=== PATIENT | female | born 1960 | race Asian ===

== ENCOUNTER 2016-07-13 13:44 | Emergency (ER) | payer OTHER ==
[~2016-07-13] VITALS: Ht 157.5 cm; Wt 74.4 kg
[~2016-07-13 13:44] MED LIST: COLACE100 MG ORAL; IBUPROFEN600 MG ORAL; LORAZEPAM0.5 MG ORAL; NORCO 5-325 TA1 EACH ORAL
[2016-07-13] MEDS ORDERED: Bacitracin Oint UD TOPIC ONE (14:15)
[2016-07-13] MEDS: TdaP Vaccine 0.5ml Syr IM ONE ×2 (14:15→14:34)
--- NOTE | 2016-07-13 14:20 | Emergency Room Report ---
History of Present Illness General Chief Complaint: General Complaint Source: Patient Present Illness HPI Patient presents with rash on both sides of her neck and shoulder. It's been there for 4 or 5 days. It's itching. She denies pain. She also felt weakness of. She's been sneezing appeared denies any fevers, cough, sore throat, nausea , vomiting, diarrhea, dysuria. She is uncertain but believes that her last vaccination for tetanus was more than 10 years ago. While she is getting treated she is complaining about some nausea and anxiety. She has a prescription for Ativan. Allergies: Coded Allergies: PENICILLINS (Unverified Allergy, Unknown, 08/24/15) Uncoded Allergies: PENICILLIN (Allergy, Unknown, 04/04/15) Patient History Past Medical History: see triage record Social History: Denies: smoking Social History Narrative at home Reviewed Nursing Documentation: PMH: Agreed, PSxH: Agreed Nursing Documentation-PMH Past Medical History: No Stated History History Of Psychiatric Problem: No - Depression, panic disorder Review of Systems All Other Systems: negative except mentioned in HPI Physical Exam Vital Signs Date Time Temp Pulse Resp B/P Pulse Ox O2 Delivery O2 Flow Rate FiO2 07/13/16 13:56 97.9 80 16 119/64 98 Room Air Sp02 EP Interpretation: reviewed, normal General Appearance: well appearing, no apparent distress, GCS 15 Head: normocephalic, other - malar rash Eyes: bilateral eye PERRL, bilateral eye normal inspection ENT: moist mucus membranes Neck: supple Respiratory: lungs clear, normal breath sounds Cardiovascular #1: regular rate, rhythm Cardiovascular #2: 2+ radial (R) Gastrointestinal: normal inspection, normal bowel sounds, non tender, no mass, non-distended Musculoskeletal: back normal, gait/station normal, normal range of motion Neurologic: alert, oriented x3, grossly normal Psychiatric: anxious Skin: warm/dry, rash - bilat neck, fine annular lesions, other - malar erythema Medical Decision Making Diagnostic Impression: Primary Impression: Ringworm of body Additional Impression: Weakness ER Course Patient presents with neck rash and weakness. Ddx: allergic reaction, fungal infection, cellulitis, hypothyroid, electrolyte abnormality, Lupus or other rheumatologic disorder, anxiety, deconditioning, diabetes amongst others. Rash appears like fungal infection. Weakness is more complex necesitating further evaluation with EKG, labs, UA and CXR. Treatment will be symptomatic. Labs unremarkable. Patient refused several treatments suggested. Patient improved. Discussed need for PMD to undertake further w/u. Patient stable for outpatient observation and treatment. Laboratory Tests Test 07/13/16 14:40 White Blood Count 5.2 K/UL (4.8-10.8) Red Blood Count 4.37 M/UL (4.20-5.40) Hemoglobin 13.4 G/DL (12.0-16.0) Hematocrit 41.7 % (37.0-47.0) Mean Corpuscular Volume 96 FL (80-99) Mean Corpuscular Hemoglobin 30.8 PG (27.0-31.0) Mean Corpuscular Hemoglobin Concent 32.2 G/DL (32.0-36.0) Red Cell Distribution Width 11.7 % (11.6-14.8) Platelet Count 248 K/UL (150-450) Mean Platelet Volume 8.0 FL (6.5-10.1) Neutrophils (%) (Auto) 54.1 % (45.0-75.0) Lymphocytes (%) (Auto) 34.7 % (20.0-45.0) Monocytes (%) (Auto) 6.8 % (1.0-10.0) Eosinophils (%) (Auto) 3.6 % (0.0-3.0) H Basophils (%) (Auto) 0.9 % (0.0-2.0) Urine Color Yellow Urine Appearance Slightly cloudy Urine pH 7 (4.5-8.0) Urine Specific [place] 1.015 (1.005-1.035) Urine Protein Negative (NEGATIVE) Urine Glucose (UA) Negative (NEGATIVE) Urine Ketones Negative (NEGATIVE) Urine Occult Blood Negative (NEGATIVE) Urine Nitrite Negative (NEGATIVE) Urine Bilirubin Negative (NEGATIVE) Urine Urobilinogen Normal MG/DL (0.0-1.0) Urine Leukocyte Esterase 1+ (NEGATIVE) H Urine RBC 0-2 /HPF (0 - 2) Urine WBC 2-4 /HPF (0 - 2) Urine Squamous Epithelial Cells None /LPF (NONE/OCC) Urine Amorphous Sediment Many /LPF (NONE) H Urine Bacteria Occasional /HPF (NONE) Sodium Level 141 mEQ/L (135-145) Potassium Level 4.1 mEQ/L (3.4-4.9) Chloride Level 100 mEQ/L (98-107) Carbon Dioxide Level 26 mEQ/L (20-30) Anion Gap 15 (5-15) Blood Urea Nitrogen 17 mg/dL (7-23) Creatinine 0.7 mg/dL (0.5-0.9) Estimate Glomerular Filtration Rate > 60 mL/min (>60) Glucose Level 110 mg/dL (74-106) H Calcium Level 9.4 mg/dL (8.6-10.2) Total Bilirubin 0.2 mg/dL (0.0-1.2) Aspartate Amino Transferase (AST) 20 U/L (5-40) Alanine Aminotransferase (ALT) 12 U/L (3-33) Alkaline Phosphatase 55 U/L (35-104) Total Creatine Kinase 148 U/L (26-140) H Troponin I < 0.30 ng/mL (<=0.30) Pro-B-Type Natriuretic Peptide 37 pg/mL (0-125) Total Protein 7.4 g/dL (6.6-8.7) Albumin 4.4 g/dL (3.5-5.2) Globulin 3.0 g/dL Albumin/Globulin Ratio 1.4 (1.0-2.7) Thyroid Stimulating Hormone (TSH) 1.430 uIU/mL (0.300-4.500) EKG Diagnostic Results Rate: normal Rhythm: NSR ST Segments: no acute changes Rhythm Strip Diag. Results EP Interpretation: yes Rhythm: NSR, no PVC's, no ectopy Chest X-Ray Diagnostic Results EP Interpretation: Yes Findings: no consolidation, no effusion, no pneumothorax, no acute cardiopulmonary disease Number of Views: 1 Last Vital Signs Date Time Temp Pulse Resp B/P Pulse Ox O2 Delivery O2 Flow Rate FiO2 07/13/16 16:41 79 19 122/85 98 07/13/16 15:13 97.5 Room Air Status: improved Disposition: HOME, SELF-CARE Condition: Improved Scripts Diphenhydramine Hcl* (BENADRYL*) 25 Mg Capsule 25 MG ORAL Q6H Y for Itching, #16 CAP Prov: Suraj Falcon M.D. 07/13/16 Tolnaftate* (ATHLETE'S FOOT CREAM*) 28 Gm Cream..g. 1 APPLIC TOPIC TWICE A DAY, #28 GM Prov: Suraj Falcon M.D. 07/13/16 Suraj Falcon M.D. Jul 13, 2016 14:20
[2016-07-13 14:54] LABS: APPEARANCE,URINE SLIGHTLY CLOUDY; KETONES,URINE NEGATIVE (NEGATIVE); LEUKOCYTE ESTERASE ,URINE 1+ (NEGATIVE); NITRITE,URINE NEGATIVE (NEGATIVE); PH,URINE 7 (4.5-8.0); PROTEIN,URINE NEGATIVE (NEGATIVE); UROBILINOGEN,URINE NORMAL MG/DL (0.0-1.0)
[2016-07-13 14:56] LABS: BASOPHILS % (AUTO) 0.9 % (0.0-2.0); EOSINOPHILS % (AUTO) 3.6 % (0.0-3.0); LYMPHOCYTES % (AUTO) 34.7 % (20.0-45.0); MEAN CORPUSCULAR HEMOGLOBIN 30.8 PG (27.0-31.0); MEAN CORPUSCULAR HGB CONC 32.2 G/DL (32.0-36.0); MEAN CORPUSCULAR VOLUME 96 FL (80-99); MONOCYTES % (AUTO) 6.8 % (1.0-10.0); NEUTROPHILS % (AUTO) 54.1 % (45.0-75.0); PLATELET COUNT 248 K/UL (150-450); RED BLOOD COUNT 4.37 M/UL (4.20-5.40); RED CELL DISTRIBUTION WIDTH 11.7 % (11.6-14.8); WHITE BLOOD COUNT 5.2 K/UL (4.8-10.8)
[2016-07-13 15:03] LABS: ALANINE AMINOTRANSFERASE 12 U/L (3-33); ALBUMIN/GLOBULIN RATIO 1.4 (1.0-2.7); ANION GAP 15 (5-15); ASPARTATE AMINO TRANSFERASE 20 U/L (5-40); CALCIUM 9.4 mg/dL (8.6-10.2); CARBON DIOXIDE 26 mEQ/L (20-30); CHLORIDE 100 mEQ/L (98-107); CREATININE 0.7 mg/dL (0.5-0.9); GLOMERULAR FILTRATION RATE > 60 mL/min (>60); HEMOLYSIS 4; POTASSIUM 4.1 mEQ/L (3.4-4.9); SODIUM 141 mEQ/L (135-145); TOTAL PROTEIN 7.4 g/dL (6.6-8.7); TROPONIN I < 0.30 ng/mL (<=0.30)
[2016-07-13 15:13] VITALS: BP 108/72
[2016-07-13 15:23] LABS: AMORPHOUS SEDIMENT,UR MANY /LPF; BACTERIA,URINE OCCASIONAL /HPF; RBC,URINE 0-2 /HPF (0 - 2)
[2016-07-13] MEDS ORDERED: ATHLETE'S FOOT28 GM TOPIC (16:34)
[2016-07-13] MEDS ORDERED: BENADRYL25 MG ORAL (16:34)
[2016-07-13 16:41] VITALS: BP 122/85
--- NOTE | 2016-07-14 09:26 | Diagnostic Imaging Report ---
Indication: Shortness of breath Technique: Single portable AP view of the chest. Findings: Comparison: None. The bones and extra pulmonary soft tissues, cardiomediastinal silhouette, pulmonary vasculature and parenchyma, and pleural surfaces are unremarkable. IMPRESSION: Negative portable AP chest.
--- NOTE | 2016-07-14 14:21 | Cardiology Report ---
APPROVED REPORT EKG Measurement Heart [id number] Normal sinus rhythm Cannot rule out Anterior infarct, age undetermined Abnormal ECG
== END 2016-07-13 16:44 | disposition home or self-care (01) ==
LOC: EMR 14:46
DX: B35.9 Dermatophytosis, unspecified (principal); R53.1 Weakness; Z23 Encounter for immunization; Z88.0 Allergy status to penicillin
CPT/HCPCS: 36415; 71010; 80053; 81003; 82550; 83880; 84443; 84484; 85025; 90471; 90715; 93005; 99284

== ENCOUNTER 2018-10-07 17:51 | Emergency (ER) | payer MEDICAID, OTHER ==
[~2018-10-07] VITALS: Ht 162.6 cm; Wt 79.8 kg
[~2018-10-07 17:51] MED LIST changes: +ATHLETE'S FOOT28 GM TOPIC; +BENADRYL25 MG ORAL
--- NOTE | 2018-10-07 17:54 | NUR ---
ED Nurse Note: pt wants to use restroom before triage done.
[2018-10-07] MEDS ORDERED: BUSPIRONE HCL5 M1 ORAL (18:01)
[2018-10-07] MEDS ORDERED: ZOLOFT100 MG ORAL (18:01)
[2018-10-07] MEDS ORDERED: VITAMIN D400 INTLU ORAL (18:01)
--- NOTE | 2018-10-07 18:02 | NUR ---
ED Nurse Note: Patient walked into ED c/o anxiety, patient reports she has been having panic attack been anxious for the past 3 days, unable to sleep and manage her anxiety. patient is alert awake x4 ambulatory, patient's daughter by the bedside. patient appears to be very anxious at the moment, but denies any SI/HI. patient appears to be well groomed, thoughts intact.
[2018-10-07 18:27] VITALS: BP 142/72
[2018-10-07] MEDS ORDERED: LORazepam 1mg tab ORAL ONE (18:30)
--- NOTE | 2018-10-07 18:39 | Emergency Room Report ---
History of Present Illness General Chief Complaint: Behavioral Complaint Source: Medical Record Present Illness HPI 58-year-old [place] female with history of anxiety currently on BuSpar and Zoloft here with her daughter complaining of 3 days of worsening anxiety symptoms. Patient reports having a hard time sleeping at night having palpitations as well as tingling sensation in both arms. Patient has not seen her psychiatrist over 2 months. Denies suicidal and homicidal ideations. Patient is denying chest pain, shortness of breath, abdominal pain, nausea vomiting, headache and dizziness. Patient has elevated blood pressure and heart rate upon arrival to the emergency room. 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 Patient is expressing interest in going to voluntarily inpatient or outpatient psychiatric facilities. Patient is extremely talkative and expressing her feelings not waiting for her daughter to translate. Patient does not appear to be in a lot of distress and has a stable vital signs after given 1 dose of oral Ativan. Allergies: Coded Allergies: PENICILLINS (Unverified Allergy, Unknown, 08/24/15) Patient History Limited by: language barrier Past Medical History: see triage record Past Surgical History: unable to obtain Pertinent Family History: none Last Menstrual Period: last year Now: No Immunizations: UTD Reviewed Nursing Documentation: PMH: Agreed; PSxH: Agreed Nursing Documentation-PMH Past Medical History: No History, Except For Review of Systems All Other Systems: negative except mentioned in HPI Physical Exam Vital Signs Date Time Temp Pulse Resp B/P (MAP) Pulse Ox O2 Delivery O2 Flow Rate FiO2 10/07/18 17:55 98.1 111 18 160/86 (110) 98 Room Air Sp02 EP Interpretation: reviewed, normal General Appearance: normal inspection, well appearing, no apparent distress, alert, GCS 15, non-toxic Head: normocephalic, atraumatic Eyes: bilateral eye normal inspection, bilateral eye PERRL ENT: normal ENT inspection, hearing grossly normal, normal pharynx Neck: normal inspection, full range of motion, supple Respiratory: normal inspection, chest non-tender, lungs clear, no rhonchi, no wheezing Cardiovascular #1: normal inspection, normal peripheral pulses, regular rate, rhythm, no murmur Gastrointestinal: normal inspection, non tender, soft, no peritonitis, no bruit Rectal: deferred Genitourinary: no CVA tenderness Neurologic: normal inspection, alert, oriented x3, responsive, sports anchor III-XII nml as tested Psychiatric: judgement/insight normal, memory normal, no suicidal/homicidal ideation, anxious Skin: no rash Lymphatic: normal inspection, no adenopathy Medical Decision Making PA Attestation All my diagnosis and treatment plans were reviewed ad discussed with my supervising physician Dr. Thorne Diagnostic Impression: Primary Impression: Anxiety with limited-symptom attacks ER Course 58-year-old [place] female with history of anxiety currently on BuSpar and Zoloft here with her daughter complaining of 3 days of worsening anxiety symptoms. Patient reports having a hard time sleeping at night having palpitations as well as tingling sensation in both arms. Patient has not seen her psychiatrist over 2 months. Denies suicidal and homicidal ideations. Patient is denying chest pain, shortness of breath, abdominal pain, nausea vomiting, headache and dizziness. Patient has elevated blood pressure and heart rate upon arrival to the emergency room. 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 Patient is expressing interest in going to voluntarily inpatient or outpatient psychiatric facilities. Patient is extremely talkative and expressing her feelings not waiting for her daughter to translate. Patient does not appear to be in a lot of distress and has a stable vital signs after given 1 dose of oral Ativan. Ddx considered but are not limited to: generalized anxiety disorder, panic attack, depression with psycotic featurs, bipolar disorder, drug overdose Vital signs: are WNL, pt. is afebrile H&PE are most consistent with: Anxiety with limited symptoms attacks ORDERS: Ativan, EKG ED INTERVENTIONS: Ativan DISCHARGE: At this time pt. is stable for d/c to home. Will provide printed patient care instructions, and any necessary prescriptions. Care plan and follow up instructions have been discussed with the patient prior to discharge. Patient to follow-up with a psychiatrist and gave her a list of different psychiatric facilities to contacts at this time patient is not expressing any suicidal homicidal ideation. Due to her given age and extensive history of anxiety currently under treatment of her psychiatrist by taking Zoloft and BuSpar no more Ativan is recommended to be taken. Patient stable at time of discharge. Heart rate came down to under 100s and blood pressure dropped EKG Diagnostic Results Rate: normal Rhythm: NSR ST Segments: no acute changes Last Vital Signs Date Time Temp Pulse Resp B/P (MAP) Pulse Ox O2 Delivery O2 Flow Rate FiO2 10/07/18 18:32 98 21 Room Air 10/07/18 18:27 98.1 142/72 99 Disposition: HOME, SELF-CARE Condition: Stable Patient Instructions: Generalized Anxiety Disorder Additional Instructions: Follow-up with a psychiatrist and psychotherapist a list of different psychiatric facilities that you can voluntarily go into given to you continue taking your daily anxiety medication. Favio Zuñiga Oct 07, 2018 18:39
[2018-10-07 18:55] VITALS: BP 128/71
--- NOTE | 2018-10-07 18:55 | NUR ---
ER DISCHARGE NOTE: Patient is cleared to be discharged per NASIR SALAZAR, pt is aox4, on room air, with stable vital signs. pt was given dc and prescription instructions, pt was able to verbalize understanding, pt id band removed without complications. pt is able to ambulate with steady gait. pt took all belongings.
--- NOTE | 2018-10-08 18:26 | Cardiology Report ---
APPROVED REPORT EKG Measurement Heart [id number] Normal sinus rhythm Possible Left atrial enlargement Cannot rule out Anterior infarct, age undetermined Abnormal ECG
== END 2018-10-07 18:55 | disposition home or self-care (01) ==
LOC: EMR 18:42
DX: F41.9 Anxiety disorder, unspecified (principal); Z88.0 Allergy status to penicillin
CPT/HCPCS: 93005; 99282

== ENCOUNTER 2018-10-14 23:15 | Emergency (ER) | payer MEDICAID ==
[~2018-10-14] VITALS: Ht 154.9 cm; Wt 78.0 kg
[~2018-10-14 23:15] MED LIST changes: +BUSPIRONE HCL5 M1 ORAL; +VITAMIN D400 INTLU ORAL; +ZOLOFT100 MG ORAL
--- NOTE | 2018-10-15 | NUR ---
ED Nurse Note: Recieved pt from home, here with c/o increased anxiety from family member dying today, pt has hx of anxiety and takes meds at home which were not effective, tp also c/o increased gas and gastric discomfort, daughter is present with her, pt gowned and urine sample collected and sent, will continue to closely monitor and resume care as ordered.
[2018-10-15] MEDS ORDERED: LORazepam 1mg tab ORAL ONE (00:15)
[2018-10-15] MEDS ORDERED: Lidocaine 2% Visc 15ml soln ORAL ONE (00:15)
[2018-10-15] MEDS ORDERED: Dicyclomine HCl 10mg/5ml oral soln ORAL ONE (00:15)
[2018-10-15] MEDS ORDERED: Mylanta II UD 30ml ORAL ONE (00:15)
[2018-10-15 01:30] VITALS: BP 158/81
[2018-10-15] MEDS ORDERED: ATIVAN1 MG ORAL (01:39)
[2018-10-15] MEDS ORDERED: RANITIDINE HCL150 MG ORAL (01:39)
--- NOTE | 2018-10-15 01:45 | NUR ---
ER DISCHARGE NOTE: Patient is cleared to be discharged per ERMD, pt is aox4, on room air, with stable vital signs. pt was given dc and prescription instructions, pt was able to verbalize understanding, pt id band and iv site removed without complications. pt is able to ambulate with steady gait. pt took all belongings. meds given effective, pt is very calm and cooperative, ambulates well, no cp or sob, nad noted.
[2018-10-15 01:50] VITALS: BP 158/81
--- NOTE | 2018-10-15 03:13 | Emergency Room Report ---
History of Present Illness General Chief Complaint: General Complaint Source: Patient, Family Member Present Illness HPI 58-year-old female presents ED for evaluation. Patient is here complaining of palpitations and anxiety. Daughter at bedside states that patient was suffering from some "gas and bloating" tonight which has in the past triggered her anxiety. States that her heart is racing. Does take medications. Denies SI or HI. Denies hearing voices. Denies nausea or vomiting. Denies chest pain. No other aggravating relieving factors. Denies any associated symptoms Allergies: Coded Allergies: PENICILLINS (Unverified Allergy, Unknown, 08/24/15) Patient History Past Medical History: psych hx Past Surgical History: none Pertinent Family History: none Social History: Denies: smoking, alcohol use, drug use Now: No Immunizations: UTD Reviewed Nursing Documentation: PMH: Agreed; PSxH: Agreed Nursing Documentation-PMH Past Medical History: No History, Except For Review of Systems All Other Systems: negative except mentioned in HPI Physical Exam Vital Signs Date Time Temp Pulse Resp B/P (MAP) Pulse Ox O2 Delivery O2 Flow Rate FiO2 10/14/18 23:39 97.9 91 18 169/87 (114) 95 Room Air Sp02 EP Interpretation: reviewed, normal General Appearance: no apparent distress, alert, GCS 15, non-toxic Head: normocephalic, atraumatic Eyes: bilateral eye normal inspection, bilateral eye PERRL ENT: hearing grossly normal, normal pharynx, no angioedema, normal voice Neck: full range of motion, supple/symm/no masses Respiratory: chest non-tender, lungs clear, normal breath sounds, speaking full sentences Cardiovascular #1: regular rate, rhythm, no edema Cardiovascular #2: 2+ carotid (R), 2+ carotid (L), 2+ radial (R), 2+ radial (L) , 2+ dorsalis pedis (R), 2+ dorsalis pedis (L) Gastrointestinal: normal bowel sounds, non tender, soft, non-distended, no guarding, no rebound Rectal: deferred Genitourinary: normal inspection, no CVA tenderness Musculoskeletal: back normal, gait/station normal, normal range of motion, non- tender Neurologic: alert, oriented x3, responsive, motor strength/tone normal, sensory intact, speech normal Psychiatric: no suicidal/homicidal ideation, no delusions, anxious Reflexes: 3+ bicep (R), 3+ bicep (L), 3+ tricep (R), 3+ tricep (L), 3+ knee (R) , 3+ knee (L) Lymphatic: no adenopathy Medical Decision Making Diagnostic Impression: Primary Impression: Anxiety Additional Impression: Gastritis Qualified Codes: K29.00 - Acute gastritis without bleeding ER Course Hospital Course 58 yo F presents with anxiety, palpitations. also c/o GERD Differential diagnoses include: SC/unstable angina, gastritis, anxiety Clinical course Patient placed on stretcher. on cardiac catheterization technologist. After initial history and physical I EKG, GI cocktail, pepcid, ativan EKG - NSR no acute ischemic changes interpreted by me Reassessment patient feeling better after medications. Vitals stable. Resting comfortably. Abdomen is soft. No guarding. Discussed with daughter. Will discharge to home with prescription for Ativan. Recommend close outpatient follow-up with psychiatry. Will provide referrals I. I feel this is a highly complex case requiring extensive working including EKG/Rhythm strip, Xray/CT/US, Blood/urine lab work, repeat exams while in ED, and administration of strong opiates/narcotics for pain control, admission to hospital or close patient follow up. Diagnosis - anxiety, gastritis Stable and discharged to home with Rx Ativan, Zantac. Followup with PMD. Return to ED if symptoms recur or worse EKG Diagnostic Results Rate: normal Rhythm: NSR ST Segments: no acute changes ASA given to the pt in ED: No Rhythm Strip Diag. Results EP Interpretation: yes Rhythm: NSR, no PVC's, no ectopy Last Vital Signs Date Time Temp Pulse Resp B/P (MAP) Pulse Ox O2 Delivery O2 Flow Rate FiO2 10/15/18 01:30 98.4 78 18 158/81 97 Room Air Status: improved Disposition: HOME, SELF-CARE Condition: Stable Scripts Lorazepam* (ATIVAN*) 1 Mg Tablet 1 MG ORAL THREE TIMES A DAY for 3 Days, TAB Prov: Cam Thorne MD 10/15/18 Ranitidine Hcl* (ZANTAC*) 150 Mg Tablet 150 MG ORAL TWICE A DAY, #30 TAB Prov: Cam Thonre MD 10/15/18 Referrals: NON PHYSICIAN (PCP) [facility] - Peds ER - Patient Instructions: Panic Attacks, [id number] Cam Thorne MD Oct 15, 2018 03:13
== END 2018-10-15 01:48 | disposition home or self-care (01) ==
LOC: EMR 10-15 00:20
DX: F41.9 Anxiety disorder, unspecified (principal); K29.70 Gastritis, unspecified, without bleeding; Z88.0 Allergy status to penicillin
CPT/HCPCS: 93005; 99283

== ENCOUNTER 2018-10-20 19:29 | Emergency (ER) | payer MEDICAID ==
[~2018-10-20] VITALS: Ht 165.1 cm; Wt 63.5 kg
[~2018-10-20 19:29] MED LIST changes: +ATIVAN1 MG ORAL; +RANITIDINE HCL150 MG ORAL
[2018-10-20 19:46] VITALS: BP 156/92
[2018-10-20] MEDS ORDERED: BUSPIRONE HCL5 M1 ORAL (19:53)
[2018-10-20 20:15] VITALS: BP 156/92
--- NOTE | 2018-10-20 20:15 | NUR ---
ED Nurse Note: Ppatient walked into ED c/o feeling anxious and high blood pressure. patient's BP on triage was 156/92. patient reports she wants medication for the anxiety and she needs that for her stress. On top of that patient c/o that it's too crowded in ED and she does not want to stay here any longer, she rquested to see the doctor right away. Patient reports she wants to leave now. RN explained that there are many patient that come in at once, please have patience to see the doctor, however, patient left. patient reported that she called [employer] for her ride. Notified Roselia Calderón
--- NOTE | 2018-10-20 20:52 | Emergency Room Report ---
History of Present Illness General Chief Complaint: Medication Refill Source: Patient Present Illness HPI This patient left prior to evaluation by medical provider. Allergies: Coded Allergies: PENICILLINS (Unverified Allergy, Unknown, 08/24/15) Nursing Documentation-[facility] Past Medical History: No History, Except For Hx Hypertension: Yes Physical Exam Vital Signs Date Time Temp Pulse Resp B/P (MAP) Pulse Ox O2 Delivery O2 Flow Rate FiO2 10/20/18 19:46 98.2 103 2 156/92 (113) 95 Medical Decision Making PA Attestation Dr. Thorne is my supervising Physician whom patient management has been discussed with. Diagnostic Impression: Primary Impression: Patient left without being seen ER Course This patient left prior to evaluation by medical provider. Last Vital Signs Date Time Temp Pulse Resp B/P (MAP) Pulse Ox O2 Delivery O2 Flow Rate FiO2 10/20/18 20:15 98.2 103 21 156/92 95 Disposition: LEFT W/OUT BEING SEEN Condition: Unknown Roselia Hanley Oct 20, 2018 20:52
== END 2018-10-20 20:15 | disposition left against medical advice (07) ==
LOC: EMR 20:15
DX: Z53.21 Procedure and treatment not carried out due to patient leaving prior to being seen by health care provider (principal); Z88.0 Allergy status to penicillin; I10 Essential (primary) hypertension

== ENCOUNTER 2019-10-10 21:44 | Emergency (ER) | payer MEDICAID ==
[~2019-10-10] VITALS: Ht 170.2 cm; Wt 63.5 kg
[2019-10-10] MEDS ORDERED: LORazepam Inj 2mg/ml 1ml IM ONE (22:00)
--- NOTE | 2019-10-10 22:00 | NUR ---
ED Nurse Note: Recieved pt IRVIN from home with c/o hsaving a panic attack and her meds are not working, pt is awake, alert and oriented x 4, states she is under a lot of stress at home, pthas hx of anxiety and takes ativan, took and not working, pt denies CP, SOB, or any other complaints or discomforts. pt assisted to room and urine sample collected.
[2019-10-10] MEDS ORDERED: XANAX0.5 MG ORAL (22:03)
--- NOTE | 2019-10-10 22:03 | Emergency Room Report ---
History of Present Illness General Chief Complaint: General Complaint Source: Patient, Medical Record Present Illness HPI Is a 59-year-old English female with a history of anxiety. She presents with chief complaint of anxiety/panic attack. She is taking Ativan is not helping. She is under a lot of stress at home. No suicidal thoughts homicidal thought. Worse with stress. Denies any fever chills. Denies any chest pain. Similar symptoms in the past. Allergies: Coded Allergies: PENICILLINS (Unverified Allergy, Unknown, 08/24/15) COVID-19 Screening Contact w/high risk pt: No Experienced COVID-19 symptoms?: No COVID-19 Testing performed POULTRY CULLER: No Patient History Past Medical History: see triage record, old chart reviewed, HTN, psych hx Past Surgical History: none Pertinent Family History: none Social History: Denies: smoking Now: No Immunizations: other Reviewed Nursing Documentation: PMH: Agreed; PSxH: Agreed Nursing Documentation-PMH Hx Hypertension: Yes History Of Psychiatric Problem: Yes - anxiety Review of Systems Eye: Denies: eye pain, blurred vision ENT: Denies: ear pain, nose congestion, throat swelling Respiratory: Denies: cough, shortness of breath Cardiovascular: Denies: chest pain, palpitations Gastrointestinal: Denies: abdominal pain, diarrhea, nausea, vomiting Musculoskeletal: Denies: back pain, joint pain Skin: Denies: rash Psychiatric: Reports: anxiety Neurological: Denies: headache, numbness Endocrine: Denies: increased thirst, increased urine Hematologic/Lymphatic: Denies: easy bruising All Other Systems: negative except mentioned in HPI Physical Exam Vital Signs Date Time Temp Pulse Resp B/P (MAP) Pulse Ox O2 Delivery O2 Flow Rate FiO2 10/10/19 21:40 99.1 120 20 138/102 (114) 99 Room Air Vitals with tachycardia Sp02 EP Interpretation: reviewed, normal General Appearance: well appearing, no apparent distress, alert Head: normocephalic, atraumatic Eyes: bilateral eye PERRL, bilateral eye EOMI ENT: hearing grossly normal, normal pharynx Neck: full range of motion, supple, no meningismus Respiratory: chest non-tender, lungs clear, normal breath sounds Cardiovascular #1: regular rate, rhythm, no murmur Gastrointestinal: normal bowel sounds, non tender, no mass, no organomegaly, no bruit, non-distended Musculoskeletal: back normal, normal range of motion, gait/station normal Psychiatric: anxious Medical Decision Making Diagnostic Impression: Primary Impression: Panic attack ER Course Patient presents with panic attack. She is hyperventilating. Better after Ativan. Will discharge home. Last Vital Signs Date Time Temp Pulse Resp B/P (MAP) Pulse Ox O2 Delivery O2 Flow Rate FiO2 10/10/19 21:40 99.1 120 20 138/102 (114) 99 Room Air Status: improved Disposition: HOME, SELF-CARE Condition: Stable Scripts Alprazolam* (XANAX*) 0.5 Mg Tablet 0.5 MG ORAL TID PRN for PRN Agitation/Anxiety, #20 TAB 0 Refills Prov: Mat Stanford MD 10/10/19 Additional Instructions: Follow-up with your doctor for refills on your medication. Return if symptoms worsen. Mat Stanford MD Oct 10, 2019 22:03
[2019-10-10 22:15] VITALS: BP 138/102
[2019-10-10 22:20] VITALS: BP 138/102
--- NOTE | 2019-10-10 22:20 | NUR ---
ER DISCHARGE NOTE: Patient is cleared to be discharged per ERMD, pt is aox4, on room air, with stable vital signs. pt was given dc and prescription instructions, pt was able to verbalize understanding, pt id band removed without complications. pt is able to ambulate with steady gait. pt took all belongings.
== END 2019-10-10 22:20 | disposition home or self-care (01) ==
LOC: EDBD 21:44 → EMR 22:00
DX: F41.0 Panic disorder [episodic paroxysmal anxiety] (principal); F41.9 Anxiety disorder, unspecified; Z88.0 Allergy status to penicillin; I10 Essential (primary) hypertension
CPT/HCPCS: 96372; Z7502; 99283